=== PATIENT | male | born 1970 | race Caucasian/White ===

== ENCOUNTER 2024-10-01 08:09 | Outpatient (OUT) | payer OTHER, SELFPAY ==
[2024-10-01 10:06] LABS: Basophils Percent Auto 0.3 % (0.2-2.0); Eosinophils Absolute Auto 0.3 10^3/uL (0.0-0.7); Eosinophils Percent Auto 4.1 % (0.9-7.0); Hematocrit 46.4 % (42.0-54.0); Hemoglobin 15.8 g/dL (14.0-18.0); Immature Granulocytes Abs Auto 0.03 10^3/uL (0.00-0.03); Immature Granulocytes Pct Auto 0.4 % (0.0-0.5); Lymphocytes Absolute Auto 1.5 10^3/uL (1.2-3.8); Lymphocytes Percent Auto 21.1 % (20.5-60.0); Mean Corpuscular HGB Conc 34.1 g/dL (29.9-35.2); Mean Corpuscular Hemoglobin 33.5 pg (25.9-34.0); Mean Corpuscular Volume 98.3 fL (80.0-94.0); Mean Platelet Volume 10.6 fL (9.5-13.5); Monocytes Absolute Auto 0.5 10^3/uL (0.3-0.8); Monocytes Percent Auto 6.7 % (1.7-12.0); Neutrophils Absolute Auto 4.6 10^3/uL (1.4-6.5); Neutrophils Percent Auto 67.4 % (43.0-75.0); Platelet Count 231 10^3/uL (150-450); Red Blood Count 4.72 10^6/uL (4.70-6.10); White Blood Count 6.9 10^3/uL (4.0-11.0)
[2024-10-01 10:44] LABS: Alanine Aminotransferase 34 U/L (16-63); Albumin Globulin Ratio 1.1; Albumin Level 3.6 g/dL (3.4-5.0); Alkaline Phosphatase 57 U/L (46-116); Anion Gap 11.3; Aspartate Amino Transferase 17 U/L (15-37); BUN Creatinine Ratio 13.4; Bilirubin Total 0.8 mg/dL (0.2-1.0); Calcium 8.8 mg/dL (8.5-10.1); Chloride 107 mmol/L (98-107); Cholesterol 157 mg/dL (<=200); Estimated GFR (African America >60 (>=60 mL/min/1.73m^2); Estimated GFR (Non-African Ame >60 (>=60 mL/min/1.73m^2); Globulin 3.3 g/dL; Glucose 106 mg/dL (74-106); HDL Cholesterol 39 mg/dL (40-60); Potassium 4.3 mmol/L (3.5-5.1); Sodium 143 mmol/L (136-145); Total Protein 6.9 g/dL (6.4-8.2); Triglycerides 152 mg/dL (<=150); VLDL CHOLESTEROL 30.4 mg/dL
[2024-10-01 11:15] LABS: Estimated Average Glucose 117 mg/dL; Glycohemoglobin A1C 5.7 % (4.5-6.2)
[2024-10-01 11:56] LABS: Prostate Specific Antigen Scrn 2.62 ng/mL (<=4.00)
== END 2024-10-01 08:10 ==
LOC: LAB 10-06 08:10
PROVIDERS: Family Provider Family Medicine; PCP Family Medicine; Visit Provider Family Medicine
DX: Z00.00 Encounter for general adult medical examination without abnormal findings (principal)
CPT/HCPCS: 36415; 80053; 80061; 83036; 85025; G0103